=== PATIENT | male | born 1955 | race American Indian/Alaskan Native ===

== ENCOUNTER 2017-01-25 15:37 | Emergency (ER) | payer OTHER ==
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
[2017-01-25] MEDS ORDERED: NORCO 5/325 PO ONE ×2 (19:36→21:15)
[2017-01-25 20:23] LABS: Basophils % (Auto) 0.5 % (0.0-1.8); Eosinophils % (Auto) 0.6 % (0.0-4.3); Hematocrit 37.9 % (35.5-45.6); Hemoglobin 12.3 gm/dl (11.8-15.2); Mean Corpuscular HGB Conc 32 % (32-34); Mean Corpuscular Volume 78 fl (84-94); Platelet Count 237 K/mm3 (140-440); Red Blood Count 4.89 M/mm3 (3.65-5.03); Red Cell Distribution Width 14.9 % (13.2-15.2); White Blood Count 7.5 K/mm3 (4.5-11.0)
[2017-01-25 20:24] LABS: Mean Corpuscular Hemoglobin 25 pg (28-32)
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
[2017-01-25 20:47] LABS: Alanine Aminotransferase 33 units/L (7-56); Albumin 4.1 g/dL (3.9-5); Alkaline Phosphatase 45 units/L (35-129); Anion Gap 18 mmol/L; Blood Urea Nitrogen 16 mg/dL (9-20); Calcium 9.3 mg/dL (8.4-10.2); Carbon Dioxide 28 mmol/L (22-30); Chloride 101.6 mmol/L (98-107); Glucose 95 mg/dL (75-100); Potassium 3.9 mmol/L (3.6-5.0); Sodium 144 mmol/L (137-145); Total Protein 8.4 g/dL (6.3-8.2)
[2017-01-25 21:05] LABS: Bilirubin,Direct < 0.2 mg/dL (0-0.2); Bilirubin,Indirect 0.2 mg/dL
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
[2017-01-26 01:08] VITALS: BP 132/82
== END 2017-01-25 23:12 | disposition home or self-care (01) ==
LOC: ED 15:37
DX: S62.92XA Unspecified fracture of left hand, initial encounter for closed fracture (principal); I10 Essential (primary) hypertension; Z91.013 Allergy to seafood; V49.49XA Driver injured in collision with other motor vehicles in traffic accident, initial encounter; Y92.488 Other paved roadways as the place of occurrence of the external cause; Y93.89 Activity, other specified; Y99.9 Unspecified external cause status
CPT/HCPCS: 36415; 70450; 71020; 72125; 80048; 80074; 84484; 85025; 93005; 93010